=== PATIENT | male | born 1965 | race Two or more races ===

== ENCOUNTER 2019-06-16 14:31 | Outpatient (CLI) | payer OTHER | END 2019-06-16 14:44 | disposition home or self-care (01) | LOC: SONOGRAMA 14:31 | DX: R22.2 Localized swelling, mass and lump, trunk (principal) ==

== ENCOUNTER 2020-03-23 11:21 | Emergency (ER) | payer OTHER ==
[~2020-03-23] VITALS: Ht 172.7 cm; Wt 113.4 kg
[2020-03-23] MEDS ORDERED: KETO10TA2 PO (13:12)
[2020-03-23] MEDS ORDERED: MEDROLPACK PO (13:12)
[2020-03-23] MEDS ORDERED: NORFLEX100MG PO (13:12)
== END 2020-03-23 13:38 | disposition home or self-care (01) ==
LOC: ER 11:21
DX: M54.5 Low back pain (principal)